=== PATIENT | female | born 1995 | race Caucasian/White ===

== ENCOUNTER 2017-08-17 17:58 | Emergency (ER) | payer OTHER ==
[~2017-08-17] VITALS: Ht 170.2 cm; Wt 61.0 kg
[2017-08-17 18:18] VITALS: TEMP 36.9; Ht 170.2 cm; Wt 61.0 kg
[2017-08-17] MEDS ORDERED: XYLOCAINE 1%/SOD BICARB 20 ML VIAL INFIL ONE (18:30)
[2017-08-17] MEDS ORDERED: BUPIVACAINE 0.5 % 5 MG/1 ML MPF 30ML VIAL INFIL ONE (18:30)
[2017-08-17] MEDS ORDERED: FLUO40CA8 PO (18:30)
[2017-08-17] MEDS ORDERED: BCPILLS PO (18:31)
--- NOTE | 2017-08-17 19:31 | EMERGENCY ROOM VISIT NOTE ---
ED Visit Note First contact with patient: 18:23 CHIEF COMPLAINT: Finger laceration HISTORY OF PRESENT ILLNESS: This 21-year-old female patient presents to the emergency department one hour after cutting the thumb while cutting something with an [employer] knife. The patient states the knife had a fresh blade on it and slipped while she was cutting, and sliced the medial aspect of her left thumb. The bleeding has stopped. Denies weakness or numbness of the finger. The patient has full range of motion of the fingers. The patient rates the pain as throbbing and 6/10. The patient denies any other injuries. The patient's tetanus shot is up to date. REVIEW OF SYSTEMS: A 6 system review of systems was completed with positives and pertinent negatives listed in the HPI. ALLERGIES: None MEDICATIONS: Prozac, OCPs PMH: Depression SOCIAL HISTORY: The patient is a [employer] student. She lives locally with her remain. She denies drug, alcohol, tobacco use. PHYSICAL EXAM: Vital Signs: Reviewed Nurse's notes, vital signs stable. GENERAL : This is a 21-year-old white female, in no acute distress, well developed, well nourished. SKIN: There is a 0.5 cm long laceration on the medial aspect of the left thumb. The edges gape apart with traction. There is no foreign material in the wound and it looks clean. There is minimal bleeding. No deep structures such as tendons, bones, or significant blood vessels are seen in the base of the wound. Extension and flexion of the finger is full and strong. Full range of motion of the wrist and other fingers. Capillary refill less than 2 seconds. Normal sensation to light and sharp touch. EMERGENCY DEPARTMENT COURSE: I examined the patient. Verbal consent was obtained to perform the procedure. Using sterile technique the wound was cleansed with Betadine. 3 ml of 1% buffered lidocaine with 0.5% bupivacaine was used to perform a digital block to anesthetize the patient. The area was sterilely draped. Once the patient was anesthetized, the wound was copiously irrigated under pressure with sterile saline. The wound was explored and there were no deep structures injured. The laceration was repaired using 4 simple interrupted 5-0 nylon sutures. The patient tolerated the procedure well. Hemostasis was achieved. The area was cleaned with sterile saline and dressed with bacitracin ointment and bandage. The patient was discharged home in good condition. I attest that I have personally reviewed the patient's current medication list. Patient was found to have normal blood pressure on screening and does not require follow-up. DIFFERENTIAL DIAGNOSIS: Laceration, avulsion, contusion, abrasion, fracture, foreign body, and others DIAGNOSIS: Finger laceration Current/Historical Medications Scheduled Control Pills ( Control Pills), 1 TAB PO DAILY Fluoxetine (Prozac), 40 MG PO DAILY Allergies Coded Allergies: No Known Allergies (Unverified , 08/17/17) Vital Signs Date Time Temp Pulse Resp B/P (MAP) Pulse Ox O2 Delivery O2 Flow Rate FiO2 08/17/17 18:18 36.9 75 16 132/78 100 Room Air Medications Administered Medications (Trade) Dose Ordered Sig/Rigo Route Start Time Stop Time Status Last Admin Dose Admin Lidocaine HCl (Buffered Lidocaine 1% Inj) 20 ml ONE ONCE INFIL 08/17/17 18:30 08/17/17 18:31 DC 08/17/17 18:39 20 ML Bupivacaine HCl (Marcaine 0.5% MPF Inj) 30 ml NOW ONCE INFIL 08/17/17 18:30 08/17/17 18:31 DC 08/17/17 18:39 30 ML Departure Information Impression Primary Impression: Laceration of left thumb with damage to nail Dispostion Home / Self-Care Condition GOOD Referrals No Doctor, Assigned (PCP) [facility] Patient Instructions ED Laceration Ext Sutr Stap Tape, My [facility] [employer] Additional Instructions You have received 4 sutures on your thumb. These sutures are NOT dissolvable and WILL need to be removed by a health care provider in 8-10 days. You can return to the Emergency Department or contact your Primary Care Provider to have the sutures removed. Proper wound care is essential for adequate wound healing and infection prevention. You can shower and clean the wound with soap and water. Do not scour over the wound, pat dry with a towel. Do not submerse the wound (i.e. bathe or dish wash) until the sutures have been removed. You can use an antibiotic ointment with a dressing over the wound for the next 3-4 days. After this time you may leave the wound dry and open to the air. If crust develops over the wound you can use a Q-tip to apply a 1:1 peroxide:water solution to clean the wound. Look for signs of infection of the wound including: increased pain, swelling, foul discharge, streaking, or increased temperature. If any of these are noticed you should return to the Emergency Department for further assessment and treatment. As with any laceration you may have received nerve damage to the surrounding tissues. This damage may or may not be permanent. You should keep the area covered with sunscreen for the first 6 months to 1 year when at risk for exposure to help minimize scarring. You can also use scar reducing creams or Vitamin E oil to help minimize scarring. For pain control, you can use the following [id number] medicines (if >12 yo): Ibuprofen(Motrin, Advil) may be used for fever or pain. Use 600mg every six hours as needed. Take with food. Avoid using more than 2400mg in a 24 hour period. Do not use 2400mg per day for more than three consecutive days without physician direction. Prolonged inappropriate use can lead to stomach upset or ulcers. (AND/OR) Acetaminophen(Tylenol) may be used for fever or pain. Use 1000mg every six hours as needed. Avoid using more than 3000mg in a 24 hour period. Return to the emergency department if your symptoms worsen despite treatment course outlined above. Problem Qualifiers Primary Impression: Laceration of left thumb with damage to nail Encounter type: initial encounter Foreign body presence: without foreign body Qualified Codes: S61.112A - Laceration without foreign body of left thumb with damage to nail, initial encounter
[2017-08-17 19:37] VITALS: BP 123/72; PULSE 70; O2SAT 99
== END 2017-08-17 19:38 | disposition home or self-care (01) ==
LOC: C.EDB 18:00 → C.EDD 19:38
DX: S61.012A Laceration without foreign body of left thumb without damage to nail, initial encounter (principal); W26.8XXA Contact with other sharp object(s), not elsewhere classified, initial encounter